=== PATIENT | female | born 1975 | race Asian ===

== ENCOUNTER → 2017-08-01 | Outpatient (CLI) | payer BC ==
[2017-08-01 12:41] LABS: CHOLESTEROL/HDL RATIO 3.9; THYROID STIMULATING HORMONE 2.5 uIu/ml (0.300-4.500)
== END | disposition home or self-care (01) ==
LOC: C.LAB 10:13
PROVIDERS: ATTEND Family Medicine
DX: Z00.00 Encounter for general adult medical examination without abnormal findings (principal); R53.81 Other malaise; R53.83 Other fatigue